=== PATIENT | male | born 1980 | race Caucasian/White ===

== ENCOUNTER 2024-03-14 21:06 | Inpatient (IN) | payer OTHER ==
[~2024-03-14] VITALS: Ht 175.3 cm; Wt 80.0 kg
[~2024-03-14 21:06] MED LIST: AMOXICILLIN500 M1 PO; ASPIRIN EC325 MG PO; BACTRIM DS TAB1 EACH PO; BUPROPION HCL200 MG PO; GABAPENTIN300 MG PO; GABAPENTIN800 MG PO; IBUPROFEN200 M1 PO; IBUPROFEN800 MG PO; KEFLEX500 MG PO; NORCO 5-325 TA1 EACH PO; QUETIAPINE FUM300 M1 PO; SEROQUEL300 MG PO; WELLBUTRIN XL150 MG PO
[2024-03-14] MEDS ORDERED: DAPTOmycin 500 MG/10 ML VIAL IV ONE (21:30)
[2024-03-14 21:34] LABS: EOSINOPHILS 1.5 % (0-6); HEMATOCRIT 40.2 % (35.0-50.0); HEMOGLOBIN 13.7 g/dL (12.0-18.0); MCV 88.2 fl (81-99); NEUTROPHILS 65.5 % (39-80); PLATELET COUNT 389 K/uL (140-440); RBC 4.56 M/ul (4.3-5.7); RDW 13.6 (10.5-15.0)
[2024-03-14 21:45] LABS: INR 1.04 (0.80-1.30); PROTIME 12.9 Sec (11.2-14.2)
[2024-03-14 21:51] LABS: ALBUMIN 3.7 g/dL (3.4-5.0); ALBUMIN/GLOBULIN RATIO 0.97 (1.1-2.4); ANION GAP 12.8 (7-21); BILIRUBIN, TOTAL 0.3 ng/dL (0.2-1.0); BUN/CREATININE RATIO 8.1 (6.0-28.6); CALCIUM 8.8 mg/dL (8.5-10.1); CREATININE, SERUM 1.11 mg/dL (0.70-1.30); POTASSIUM 3.8 mmol/L (3.5-5.1); PROTEIN, TOTAL 7.5 g/dL (6.4-8.2)
[2024-03-14 21:55] LABS: AMPHETAMINES, URINE POSITIVE (NEGATIVE); BARBITURATES, URINE NEGATIVE (NEGATIVE); BENZODIAZEPINE, URINE NEGATIVE (NEGATIVE); BUPRENORPHINE, URINE NEGATIVE (NEGATIVE); CANNABINOID, URINE POSITIVE (NEGATIVE); COCAINE, URINE NEGATIVE (NEGATIVE); ECSTASY, URINE POSITIVE (NEGATIVE); FENTANYL, URINE NEGATIVE (NEGATIVE); METHADONE, URINE NEGATIVE (NEGATIVE); OPIATES, URINE NEGATIVE (NEGATIVE); OXYCODONE, URINE NEGATIVE (NEGATIVE); PHENCYCLIDINE, URINE NEGATIVE (NEGATIVE)
[2024-03-14 22:19] LABS: LACTIC ACID, BLOOD 1.2 mmol/L (0.4-2.0)
[2024-03-14] MEDS ORDERED: fentaNYL citrate 100 MCG/2 ML VIAL IV ONE (22:30)
[2024-03-14] MEDS ORDERED: HYDROmorphone HCL 1 MG/ML SYR IV PRN (23:30)
[2024-03-14] MEDS ORDERED: ACETAMINOPHEN 325 MG TAB PO PRN (23:30)
[2024-03-14] MEDS ORDERED: ondansetron HCL 4 MG/2 ML VIAL IV PRN (23:30)
[2024-03-15] VITALS (9 sets, daily range): BP systolic 104–154; BP diastolic 47–80
[2024-03-15 05:39] LABS: BASOPHILS 1.1 % (0-2); EOSINOPHILS 2.7 % (0-6); HEMATOCRIT 39.5 % (35.0-50.0); HEMOGLOBIN 13.2 g/dL (12.0-18.0); LYMPHOCYTES 27.9 % (24-44); MCH 29.8 (27-36); MCHC 33.3 g/dl (30-36); MCV 89.4 fl (81-99); MONOCYTES 11.4 % (0-12); NEUTROPHILS 56.9 % (39-80); PLATELET COUNT 333 K/uL (140-440); RBC 4.42 M/ul (4.3-5.7)
[2024-03-15 05:59] LABS: ALBUMIN 3.2 g/dL (3.4-5.0); ALBUMIN/GLOBULIN RATIO 0.89 (1.1-2.4); ANION GAP 9.7 (7-21); BILIRUBIN, TOTAL 0.6 ng/dL (0.2-1.0); BUN/CREATININE RATIO 10.86 (6.0-28.6); CALCIUM 8.4 mg/dL (8.5-10.1); CREATININE, SERUM 0.92 mg/dL (0.70-1.30); POTASSIUM 3.7 mmol/L (3.5-5.1); PROTEIN, TOTAL 6.8 g/dL (6.4-8.2)
[2024-03-15] MEDS ORDERED: ENOXAPARIN SODIUM 40 MG/0.4 ML SYR SUB-Q SCH (09:00)
[2024-03-15] MEDS ORDERED: DAPTOmycin 500 MG/10 ML VIAL IV SCH (09:00)
[2024-03-15] MEDS ORDERED: PHARMACY RENAL DOSE ADJUSTMENT 1 DOSE MISC PO SCH (12:00)
[2024-03-15] MEDS ORDERED: MORPHINE SULFATE 4 MG/ML VIAL IV PRN (14:00)
[2024-03-15] MEDS ORDERED: HYDROCODONE/ACETA 5/325 TAB PO PRN (14:00)
[2024-03-15] MEDS ORDERED: LACTATED RINGER'S 1,000 ML IV SCH (14:00)
[2024-03-15] MEDS ORDERED: CEFTRIAXONE/SODIUM CHLORIDE 2 GM/100 ML PIGGYBACK IV SCH (14:04)
[2024-03-16] VITALS (9 sets, daily range): BP systolic 103–124; BP diastolic 54–67
[2024-03-16 05:58] LABS: BASOPHILS 0.8 % (0-2); EOSINOPHILS 2.8 % (0-6); HEMATOCRIT 39.1 % (35.0-50.0); HEMOGLOBIN 13.1 g/dL (12.0-18.0); LYMPHOCYTES 29.6 % (24-44); MCH 29.8 (27-36); MCHC 33.6 g/dl (30-36); MCV 88.7 fl (81-99); MONOCYTES 10.3 % (0-12); NEUTROPHILS 56.5 % (39-80); PLATELET COUNT 321 K/uL (140-440); RDW 13.6 (10.5-15.0)
[2024-03-16 06:11] LABS: BUN/CREATININE RATIO 14.11 (6.0-28.6); CALCIUM 8.3 mg/dL (8.5-10.1); CREATININE, SERUM 0.85 mg/dL (0.70-1.30)
[2024-03-17 05:56] VITALS: BP 104/70
[2024-03-17 06:13] VITALS: BP 104/70
[2024-03-17 09:59] VITALS: BP 113/59
[2024-03-17 13:19] VITALS: BP 141/60
--- NOTE | 2024-03-17 14:06 | CONS ---
[facility] [address], [place] [address] Signed DATE OF CONSULTATION: 03/17/2024 REQUESTING PHYSICIAN: Dr. Nguyen. ISSUE: Left index finger soft tissue infection. HISTORY OF PRESENT ILLNESS: This 43-year-old white man has significant drug use history including positive methamphetamine evaluation upon presentation to emergency room on March 14. The patient was "gardening" and impacted his index finger on the left hand with something that possibly went under his nail. This caused swelling and pain. He did apply some topical ointment to this area, which did not allow it to improve. He presented to the emergency room at approximately 11:30 p.m. on 03/14/[address] Anderson. A MRI of the hand on the left was undertaken, which showed the possibility of osteomyelitis of the tuft of the distal segment of the index finger. The patient did have intact pulses of the wrist it is noted. The skin was macerated down to the proximal interphalangeal joint and some tissue is macerated, sloughed and denuded and purulent drainage with the nail still intact was noted apparently. His white count was noted to be 10.1, hematocrit 40.2. At this point, now, on March 17, 2024, consultation is requested by Dr. Nguyen. The patient has been on IV antibiotics, ceftriaxone and a dressing change was undertaken last night. The patient was admonished by the nurse to not remove the dressing for at least three days apparently. Upon review of notes, it appears that he was actually seen at 9:58 by the wound care nurse regarding his left index finger, as well as macerations of bilateral plantar aspect of the feet. The finger had been wrapped with Adaptic and gauze. The wound area was gently cleansed with normal saline soaked gauze. The wound was said to measure 2.5 x 2.3 cm with adherent slough and eschar. Characteristic cellulitic changes were documented. There was no foul odor emanating from the wound. The dressing applied was an Iodosorb, alginate, Kerlix and Coban mix securely wrapped. PAST MEDICAL HISTORY: Notable for no prior diabetes. He does have marijuana use and tobacco use and methamphetamine use. He has smoked one pack of cigarettes a day for many years. REVIEW OF SYSTEMS: He currently has no severe pain of the finger. Denies any shortness of breath or chest pain. Electronically Signed By: GEMA SERRA MD 03/17/24 1406 PATIENT NAME: GINNY GEORGE CONSULTATION DATE OF : 76 REPORT #: [id number] PHYSICIAN: GEMA SERRA MD PCP: NO PRIMARY CARE PHYSICIAN REPORT IS CONFIDENTIAL AND NOT TO BE RELEASED WITHOUT AUTHORIZATION [facility] [address] [place], [place] [address] Signed PHYSICAL EXAMINATION: GENERAL: Pleasant white man who is reasonably alert and oriented. VITAL SIGNS: Height is 5 feet 9 inches, weight is 80 kg, BMI is 26. EXTREMITIES: He has his left index finger wrapped in gauze with a dressing applied. Appears to be no hand swelling. My recommendation to remove the dressing to allow for visualization of the wound is refused by the patient at this time. He said he was to keep the dressing on for three days, and he does not wish to have it removed for another three days. I did advise him that as the surgeon who has been consulted to evaluate his problem that I cannot reasonably advise him of a plan of action without actually seeing the wound. Still, he refuses. Laboratory data shows a Chem profile which is normal, lactic acid which was 1.2 on 03/14, white count of 7.0 on 03/15. ASSESSMENT: I am unable to reasonably perform adequate assessment of the left index finger infectious process as the patient steadfastly refuses to allow removal of the dressing at this time. I will confer with Dr. Nguyen. Perhaps an accommodation to be made. In general terms, IV antibiotics are appropriate. I have reviewed the MRI which is less demonstrative to me than a simple plain x-ray may be. I will order for that and perhaps it can be visualized through the dressing. Debridement of the necrotic tissue would be appropriate if there is indeed necrotic tissue present. He may require a distal segmental amputation-- that remains to be determined. ADDENDUM: Within 15 minutes of this report, I was advised that the patient demanded to be discharged from the hospital AGAINST MEDICAL ADVICE, and he is unrelenting in that demand. Thus, the plain xray was not ordered. MD JACOBO Alaniz/ALICJA /[id number] cc: Dr. Nguyen Electronically Signed By: GEMA SERRA MD 03/17/24 1406 PATIENT NAME: GINNY GEORGE CONSULTATION DATE OF : 76 REPORT #: [id number] PHYSICIAN: GEMA SERRA MD PCP: NO PRIMARY CARE PHYSICIAN REPORT IS CONFIDENTIAL AND NOT TO BE RELEASED WITHOUT AUTHORIZATION [facility] [address] [facility] [place], [place] [address] Signed Copies: ~ Electronically Signed By: GEMA SERRA MD 03/17/24 1406 PATIENT NAME: GINNY GEORGE CONSULTATION DATE OF : 76 REPORT #: [id number] PHYSICIAN: GEMA SERRA MD PCP: NO PRIMARY CARE PHYSICIAN REPORT IS CONFIDENTIAL AND NOT TO BE RELEASED WITHOUT AUTHORIZATION
== END 2024-03-17 13:20 | disposition home or self-care (01) | DRG 541 ==
LOC: ED 21:06 → MS 21:08
PROVIDERS: Family Medicine; ADMIT Internal Medicine; ATTEND Internal Medicine
DX: M86.8X4 Other osteomyelitis, hand (principal); F12.90 Cannabis use, unspecified, uncomplicated; F17.210 Nicotine dependence, cigarettes, uncomplicated; F31.9 Bipolar disorder, unspecified; F90.9 Attention-deficit hyperactivity disorder, unspecified type; Z88.5 Allergy status to narcotic agent
CPT/HCPCS: 36415; 73200; 80048; 80053; 80307; 83605; 85025; 85610; A9270; J0696; J0878; J1650; J3010